=== PATIENT | female | born 2005 | race Caucasian/White ===

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

== ENCOUNTER 2024-01-05 04:29 | Emergency (ER) | payer OTHER ==
[~2024-01-05] VITALS: Ht 162.6 cm; Wt 59.2 kg
[~2024-01-05 04:29] MED LIST: AMOX500C2 PO
[2024-01-05 04:54] VITALS: BP 119/83; PULSE 72; RESP 18; TEMP 99.1
[2024-01-05] MEDS ORDERED: AMOX500C2 PO (05:41)
[2024-01-05] MEDS: DexAMETHasone SOD PHOS 10MG/1ML VIAL INJ IM ONE (06:27)
[2024-01-05 06:34] VITALS: O2SAT 98
== END 2024-01-05 06:47 | disposition home or self-care (01) ==
LOC: ER 04:29
DX: J02.0 Streptococcal pharyngitis (principal); Z79.2 Long term (current) use of antibiotics
CPT/HCPCS: 96372; 99283; J1100